=== PATIENT | male | born 1970 | race Caucasian/White ===

== ENCOUNTER 2021-09-07 23:09 | Inpatient (IN) | payer MEDICARE, MEDICAID, SELFPAY ==
[2021-09-08 04:29] VITALS: BP 142/88; PULSE 104; RESP 18; TEMP 36.8; O2SAT 98
[2021-09-08] MEDS: carisoprodoL 350 MG TABLET PO ×3 (04:54→18:34)
[2021-09-08 06:00] VITALS: BP 138/87; PULSE 100; RESP 18; TEMP 36.7; O2SAT 98
[2021-09-08] MEDS: Omeprazole 20 MG CAPSULE.DR PO (06:36)
--- NOTE | 2021-09-08 06:57 | PC.ADMIT ---
Pt is a 51 year old male transferred to [facility] form Nancie Alba via ambulance arrived at 23:50 he was being evaluated for SI and back pain. He has chronic pain. He has a history of suicide attempts. He uses a cane to ambulate and wears a orthopedic belt. Mood is depressed with episodes of crying during interview , he reports to feel safe on the unit . Covid test is neg and has no prior admission to [facility] but has a history of psychiatric inpatient at other hospitals
[2021-09-08] MEDS: OXcarbazepine 300 MG TABLET PO ×2 (09:34→13:44)
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
--- NOTE | 2021-09-08 12:57 | PM.EVENT ---
Event Note Date of Service: 09/08/21 Event Note: Pt didn't want to be evaluated at this time, I aske to be reached out to when he's ok
[2021-09-08] MEDS: diazePAM 5 MG TABLET 10 MG PO ×2 (13:43→18:35)
[2021-09-08] MEDS: buPROPion HCL 75 MG TABLET 150 MG PO (13:44)
[2021-09-08] MEDS: carisoprodoL 350 MG TABLET 175 MG PO (17:25)
[2021-09-08 18:36] VITALS: BP 130/67; PULSE 109; RESP 18; TEMP 36.2; O2SAT 96
[2021-09-08] MEDS: Zolpidem Tartrate 5 MG TABLET PO (18:36)
[2021-09-08] MEDS: Lurasidone HCl 40 MG TABLET PO (18:36)
[2021-09-08] MEDS: hydrOXYzine HCL 50 MG TABLET 100 MG PO (22:16)
[2021-09-09] MEDS: Dextroamphetamine/Amphetamine XR 10 MG CAP.ER.24H 60 MG PO (05:52)
[2021-09-09 06:00] VITALS: BP 131/75; PULSE 82; TEMP 36.5; O2SAT 98
[2021-09-09 08:24] LABS: Alanine Aminotransferase 29 U/L (0-40); Albumin Level 4.7 g/dL (3.5-5.0); Alkaline Phosphatase 120 U/L (39-117); Anion Gap 15 (12-20); Aspartate Amino Transferase 33 U/L (5-37); Bilirubin Total 1.2 mg/dL (0.0-1.0); Blood Urea Nitrogen 17 mg/dL (9-16); Calcium 9.7 mg/dL (8.4-10.2); Carbon Dioxide 25 mmol/L (22-29); Chloride 101 mmol/L (96-108); Cholesterol 270 mg/dL; Estimated Glomerular Filt Rate > 60; Glucose Fasting 110 mg/dL (60-99); HDL Cholesterol 44 mg/dL; LDL Cholesterol Calculated 200 mg/dl; Magnesium 5.9 mg/dL (1.6-2.6); Potassium 3.9 mmol/L (3.3-5.1); Sodium 137 mmol/L (135-145); Total Protein 8.6 g/dL (6.5-8.0); Triglycerides 132 mg/dL
[2021-09-09 08:41] LABS: Estimated Average Glucose 100 mg/dL; Free T4 (Free Thyroxine) 0.97 ng/dL (0.71-1.85); Hemoglobin A1c % 5.1 %; Thyroid Stimulating Hormone 3.28 uIU/mL (0.32-4.0)
[2021-09-09] MEDS: diazePAM 5 MG TABLET 10 MG PO ×2 (09:33→17:29)
[2021-09-09] MEDS: carisoprodoL 350 MG TABLET PO ×2 (09:34→22:21)
[2021-09-09] MEDS: buPROPion HCL 75 MG TABLET 150 MG PO (09:34)
[2021-09-09] MEDS: Omeprazole 20 MG CAPSULE.DR PO ×2 (09:34→16:24)
[2021-09-09] MEDS: Furosemide 40 MG TABLET PO (09:35)
--- NOTE | 2021-09-09 13:52 | P.PNPSI_ITS ---
Subjective Subjective Date of Service: 09/09/21 Reason For Visit: Major Depressive Disorder Subjective Notes: Conditional Voluntary Interim History: Met with patient. Reviewed record. Discussed with Nursing. Focused on medication regimen. Went through same in detail. And made adjustments where applicable regarding timing. Noted Tegretol is 600 mg twice per day as this is immediate release preparation versus extended release. Did confirm through [facility] Adderall dosing is 60 mg daily, Valium 10 mg 3 times per day, Ambien is 10 mg and Soma is total of 1050 mg. Reports Trileptal is very important does that decreases suicidal thoughts. Reports he is having lots of thoughts but no intention. Reports living alone and feeling isolated and more depressed recently. Sleep has been broken. Denies psychosis. Also of note magnesium level was 5.9 and hospitalist input appreciated. Medication Compliance: Yes Side effects from medications: No Attending Groups: No Review of Systems Magnesium level 5.9 and hospitalist input appreciated Review of Systems Review of Systems No significant changes Mental Status Exam Mental Status Exam Narrative: In bed. Pleasant. Some frustration regarding medication regimen. Hyperverbal and overinclusive at times. Endorses feeling depressed. Endorses SI but no plans or intent. No HI. No psychosis. Insight and judgment okay Diagnostics Vital Signs (24Hr): Vital Signs - 24 hr 09/08/21 18:36 09/09/21 06:00 Temperature 97.1 F 97.7 F Pulse Rate 109 H 82 Respiratory Rate 18 Blood Pressure 130/67 131/75 Pulse Oximetry 96 98 Oxygen Delivery Method Room Air Room Air Labs Results: 09/09/21 07:35 Labs: Laboratory Results - last 48 hr 09/09/21 09/09/21 07:35 07:35 Sodium 137 Potassium 3.9 Chloride 101 Carbon Dioxide 25 Anion Gap 15 BUN 17 H Creatinine 1.10 Estim Creat Clear Calc TNP Estimated GFR > 60 Fasting Glucose 110 H Estimat Average Glucose 100 Hemoglobin A1c % 5.1 Calcium 9.7 Magnesium 5.9 H* Total Bilirubin 1.2 H AST 33 ALT 29 Alkaline Phosphatase 120 H Total Protein 8.6 H Albumin 4.7 Triglycerides 132 Cholesterol 270 LDL Cholesterol, Calc 200 HDL Cholesterol 44 TSH 3.28 Free T4 0.97 Medications Medications Current Medications Acetaminophen (Acetaminophen 325 Mg Tablet) 650 mg PO Q6H PRN PRN Reason: Headache/Pain Mild Scale (1-3) Amphetamine/Dextroamphetamine (Dextroamphetamine/Amphetamine Xr 10 Mg Cap.Er.24h) 60 mg PO DAILY@0630 [facility] Last Admin: 09/09/21 05:52 Dose: 60 mg Bupropion HCl (Bupropion Hcl 75 Mg Tablet) 150 mg PO BID@0800,1300 [facility] Carisoprodol (Carisoprodol 350 Mg Tablet) 175 mg PO BID@1300,1700 [facility] Last Admin: 09/08/21 17:25 Dose: 175 mg Carisoprodol (Carisoprodol 350 Mg Tablet) 350 mg PO BID@0630,2100 [facility] Diazepam (Diazepam 5 Mg Tablet) 10 mg PO TID@0800,1300,2100 [facility] Efavirenz/Emtricitabine/Tenofovir (Efavirenz/Emtricitab/Tenof Df 600/200/300 Tablet) 1 tab PO BEDTIME [facility] Last Admin: 09/08/21 18:36 Dose: 1 tab Hydroxyzine HCl (Hydroxyzine Hcl 25 Mg Tablet) 25 mg PO Q6H PRN PRN Reason: Anxiety Hydroxyzine HCl (Hydroxyzine Hcl 50 Mg Tablet) 100 mg PO BEDTIME PRN PRN Reason: Insomnia Last Admin: 09/08/21 22:16 Dose: 100 mg Lurasidone HCl (Lurasidone Hcl 40 Mg Tablet) 40 mg PO DAILY@1600 [facility] Omeprazole (Omeprazole 20 Mg Capsule.Dr) 20 mg PO BID@0830,1600 [facility] Zolpidem Tartrate (Zolpidem Tartrate 5 Mg Tablet) 10 mg PO BEDTIME [facility] Allergies Allergies Allergy/AdvReac Type Severity Reaction Status Date / Time chlorpromazine Allergy Mild Rash Verified 09/08/21 05:07 meloxicam Allergy Mild Rash Verified 09/08/21 05:07 Assessment & Plan Assessment & Plan (1) Adjustment disorder with mixed disturbance of emotions and conduct: Status: Acute Code(s): F43.25 - Adjustment disorder with mixed disturbance of emotions and conduct (2) Borderline personality disorder: Status: Acute Code(s): F60.3 - Borderline personality disorder (3) Chronic post-traumatic stress disorder (PTSD): Status: Acute Code(s): F43.12 - Post-traumatic stress disorder, chronic Plan Patient is a 51-year-old male with history of anxiety, borderline personality disorder, PTSD, multiple medical comorbidities including HIV, chronic back and leg pain, hypothyroidism) who presents for dysregulated mood and suicide with plan but no intentions. Patient reports that up until this past month he his mood and anxiety have overall been fine and he has been without any SI. He says what has triggered him has been a series of failed home healthcare workers leavi ng him feeling abandoned, helpless and suicidal. He says he does not want to that he wants to live and has no current plans to harm himself. Patient does exhibit some symptoms of ASD making this a rule out PLAN: CV One-to-one due to say Sacro- iliac band Bupropion 150 mg b.i.d. Soma 350 mg in a.m., 175 mg at 13:00, 175 mg 17:00, 350 mg bedtime Diazepam 10 mg scheduled t.i.d. Latuda, increased to 40 mg daily Tegretol 600 mg b.i.d.; patient typically says he takes this 1200 mg at bedtime however this is immediate release in the hospital. Ambien 5 mg q.h.s. scheduled(he normally takes 10) Atarax 100 mg at bedtime p.r.n. for insomnia Labs from sending facility reviewed and CBC, LFTs, lytes, BUN/creatinine all grossly within normal limits; lipase elevated 148 09/09/2021: Appreciate hospitalist input regarding magnesium level. Did adjust Ambien to 10 mg given change in Tegretol regimen for/preparation poor sleep. Also adjusted Prilosec to 20 mg twice daily consistent with I spent minutes with the patient and/or on the patient floor today, greater than?50% of which was spent counseling/coordinating care. Reason for contiued inpatient stay Substantial Risk for: harm to self
--- NOTE | 2021-09-09 13:56 | HO.PSYCHPN ---
Subjective Subjective Reason For Visit: Major Depressive Disorder Diagnostics Vital Signs (24Hr): Vital Signs - 24 hr 09/08/21 18:36 09/09/21 06:00 Temperature 97.1 F 97.7 F Pulse Rate 109 H 82 Respiratory Rate 18 Blood Pressure 130/67 131/75 Pulse Oximetry 96 98 Oxygen Delivery Method Room Air Room Air Labs Results: 09/09/21 07:35 Labs: Laboratory Results - last 48 hr 09/09/21 09/09/21 07:35 07:35 Sodium 137 Potassium 3.9 Chloride 101 Carbon Dioxide 25 Anion Gap 15 BUN 17 H Creatinine 1.10 Estim Creat Clear Calc TNP Estimated GFR > 60 Fasting Glucose 110 H Estimat Average Glucose 100 Hemoglobin A1c % 5.1 Calcium 9.7 Magnesium 5.9 H* Total Bilirubin 1.2 H AST 33 ALT 29 Alkaline Phosphatase 120 H Total Protein 8.6 H Albumin 4.7 Triglycerides 132 Cholesterol 270 LDL Cholesterol, Calc 200 HDL Cholesterol 44 TSH 3.28 Free T4 0.97 Medications Medications Current Medications Acetaminophen (Acetaminophen 325 Mg Tablet) 650 mg PO Q6H PRN PRN Reason: Headache/Pain Mild Scale (1-3) Amphetamine/Dextroamphetamine (Dextroamphetamine/Amphetamine Xr 10 Mg Cap.Er.24h) 60 mg PO DAILY@0630 [facility] Last Admin: 09/09/21 05:52 Dose: 60 mg Bupropion HCl (Bupropion Hcl 75 Mg Tablet) 150 mg PO BID@0800,1300 [facility] Carisoprodol (Carisoprodol 350 Mg Tablet) 175 mg PO BID@1300,1700 [facility] Last Admin: 09/08/21 17:25 Dose: 175 mg Carisoprodol (Carisoprodol 350 Mg Tablet) 350 mg PO BID@0630,2100 [facility] Diazepam (Diazepam 5 Mg Tablet) 10 mg PO TID@0800,1300,2100 [facility] Efavirenz/Emtricitabine/Tenofovir (Efavirenz/Emtricitab/Tenof Df 600/200/300 Tablet) 1 tab PO BEDTIME [facility] Last Admin: 09/08/21 18:36 Dose: 1 tab Hydroxyzine HCl (Hydroxyzine Hcl 25 Mg Tablet) 25 mg PO Q6H PRN PRN Reason: Anxiety Hydroxyzine HCl (Hydroxyzine Hcl 50 Mg Tablet) 100 mg PO BEDTIME PRN PRN Reason: Insomnia Last Admin: 09/08/21 22:16 Dose: 100 mg Lurasidone HCl (Lurasidone Hcl 40 Mg Tablet) 40 mg PO DAILY@1600 [facility] Omeprazole (Omeprazole 20 Mg Capsule.Dr) 20 mg PO BID@0830,1600 [facility] Oxcarbazepine (Oxcarbazepine 300 Mg Tablet) 600 mg PO BID [facility] Oxcarbazepine (Oxcarbazepine 300 Mg Tablet) 600 mg PO ONCE ONE Stop: 09/09/21 13:52 Zolpidem Tartrate (Zolpidem Tartrate 5 Mg Tablet) 10 mg PO BEDTIME [facility] Allergies Allergies Allergy/AdvReac Type Severity Reaction Status Date / Time chlorpromazine Allergy Mild Rash Verified 09/08/21 05:07 meloxicam Allergy Mild Rash Verified 09/08/21 05:07 Assessment & Plan Assessment & Plan (1) Adjustment disorder with mixed disturbance of emotions and conduct: Status: Acute Code(s): F43.25 - Adjustment disorder with mixed disturbance of emotions and conduct (2) Borderline personality disorder: Status: Acute Code(s): F60.3 - Borderline personality disorder (3) Chronic post-traumatic stress disorder (PTSD): Status: Acute Code(s): F43.12 - Post-traumatic stress disorder, chronic Plan Patient is a 51-year-old male with history of anxiety, borderline personality disorder, PTSD, multiple medical comorbidities including HIV, chronic back and leg pain, hypothyroidism) who presents for dysregulated mood and suicide with plan but no intentions. Patient reports that up until this past month he his mood and anxiety have overall been fine and he has been without any SI. He says what has triggered him has been a series of failed home healthcare workers leaving him feeling abandoned, helpless and suicidal. He says he does not want to that he wants to live and has no current plans to harm himself. Patient does exhibit some symptoms of ASD making this a rule out PLAN: CV One-to-one due to say Sacro- iliac band Bupropion 150 mg b.i.d. Soma 350 mg in a.m., 175 mg at 13:00, 175 mg 17:00, 350 mg bedtime Diazepam 10 mg scheduled t.i.d. Latuda, increased to 40 mg daily Tegretol 600 mg b.i.d.; patient typically says he takes this 1200 mg at bedtime however this is immediate release in the hospital. Ambien 5 mg q.h.s. scheduled(he normally takes 10) Atarax 100 mg at bedtime p.r.n. for insomnia Labs from sending facility reviewed and CBC, LFTs, lytes, BUN/creatinine all grossly within normal limits; lipase elevated 148 09/09/2021: Appreciate hospitalist input regarding magnesium level. Did adjust Ambien to 10 mg given change in Tegretol regimen for/preparation poor sleep. Also adjusted Prilosec to 20 mg twice daily consistent with I spent minutes with the patient and/or on the patient floor today, greater than?50% of which was spent counseling/coordinating care.
[2021-09-09] MEDS: carisoprodoL 350 MG TABLET 175 MG PO ×2 (14:03→16:20)
[2021-09-09] MEDS: OXcarbazepine 300 MG TABLET 600 MG PO ×2 (14:14→22:19)
[2021-09-09 15:57] LABS: Magnesium 2.2 mg/dL (1.6-2.6)
[2021-09-09] MEDS: Lurasidone HCl 40 MG TABLET PO (17:39)
[2021-09-09 18:00] VITALS: BP 143/67; PULSE 69; RESP 20; TEMP 36.8; O2SAT 96
[2021-09-09] MEDS: Zolpidem Tartrate 5 MG TABLET 10 MG PO (22:20)
[2021-09-10] MEDS: Dextroamphetamine/Amphetamine XR 10 MG CAP.ER.24H 60 MG PO (06:13)
[2021-09-10] MEDS: carisoprodoL 350 MG TABLET PO ×2 (06:13→21:40)
[2021-09-10 06:46] VITALS: BP 133/65; PULSE 96; RESP 16; TEMP 36.6; O2SAT 97
[2021-09-10] MEDS: diazePAM 5 MG TABLET 10 MG PO ×3 (09:05→21:45)
[2021-09-10] MEDS: buPROPion HCL 75 MG TABLET 150 MG PO ×2 (09:05→12:40)
[2021-09-10] MEDS: OXcarbazepine 300 MG TABLET 600 MG PO ×2 (09:08→21:46)
[2021-09-10] MEDS: Omeprazole 20 MG CAPSULE.DR PO ×2 (09:13→17:46)
--- NOTE | 2021-09-10 12:22 | HO.PSYCHPN ---
Subjective Subjective Date of Service: 09/10/21 Reason For Visit: Major Depressive Disorder Interim History: felt positive today that medication regimen largely consistent with what he takes at home timing and dose mann. Sleep slightly better. Less depressed and suicidal. Physical concerns persist. These are chronic in nature. No psychosis. Medication Compliance: Yes Side effects from medications: No Attending Groups: No Review of Systems Acute medical concerns: No Review of Systems Review of Systems Unremarkable ie no new Mental Status Exam Mental Status Exam Narrative: engaged. Utilizing walking frame. Fair self-care. Less irritable and frustrated today. Less depressed. Less frequent SI. No psychosis. Insight judgment okay Diagnostics Vital Signs (24Hr): Vital Signs - 24 hr 09/09/21 18:00 09/10/21 06:46 Temperature 98.3 F 97.9 F Pulse Rate 69 96 Respiratory Rate 20 16 Blood Pressure 143/67 H 133/65 Pulse Oximetry 96 97 Oxygen Delivery Method Room Air Room Air Labs Results: 09/09/21 07:35 Labs: Laboratory Results - last 48 hr 09/09/21 09/09/21 09/09/21 07:35 07:35 15:27 Sodium 137 Potassium 3.9 Chloride 101 Carbon Dioxide 25 Anion Gap 15 BUN 17 H Creatinine 1.10 Estim Creat Clear Calc TNP Estimated GFR > 60 Fasting Glucose 110 H Estimat Average Glucose 100 Hemoglobin A1c % 5.1 Calcium 9.7 Magnesium 5.9 H* 2.2 Total Bilirubin 1.2 H AST 33 ALT 29 Alkaline Phosphatase 120 H Total Protein 8.6 H Albumin 4.7 Triglycerides 132 Cholesterol 270 LDL Cholesterol, Calc 200 HDL Cholesterol 44 TSH 3.28 Free T4 0.97 Medications Medications Current Medications Acetaminophen (Acetaminophen 325 Mg Tablet) 650 mg PO Q6H PRN PRN Reason: Headache/Pain Mild Scale (1-3) Amphetamine/Dextroamphetamine (Dextroamphetamine/Amphetamine Xr 10 Mg Cap.Er.24h) 60 mg PO DAILY@0630 [facility] Last Admin: 09/10/21 06:13 Dose: 60 mg Bupropion HCl (Bupropion Hcl 75 Mg Tablet) 150 mg PO BID@0800,1300 [facility] Last Admin: 09/10/21 09:05 Dose: 150 mg Carisoprodol (Carisoprodol 350 Mg Tablet) 175 mg PO BID@1300,1700 [facility] Last Admin: 09/09/21 16:20 Dose: 175 mg Carisoprodol (Carisoprodol 350 Mg Tablet) 350 mg PO BID@0630,2100 [facility] Last Admin: 09/10/21 06:13 Dose: 350 mg Diazepam (Diazepam 5 Mg Tablet) 10 mg PO TID@0800,1300,2100 [facility] Last Admin: 09/10/21 09:05 Dose: 10 mg Efavirenz/Emtricitabine/Tenofovir (Efavirenz/Emtricitab/Tenof Df 600/200/300 Tablet) 1 tab PO BEDTIME [facility] Last Admin: 09/09/21 22:20 Dose: 1 tab Hydroxyzine HCl (Hydroxyzine Hcl 25 Mg Tablet) 25 mg PO Q6H PRN PRN Reason: Anxiety Hydroxyzine HCl (Hydroxyzine Hcl 50 Mg Tablet) 100 mg PO BEDTIME PRN PRN Reason: Insomnia Last Admin: 09/08/21 22:16 Dose: 100 mg Lurasidone HCl (Lurasidone Hcl 40 Mg Tablet) 40 mg PO DAILY@1600 [facility] Last Admin: 09/09/21 17:39 Dose: 40 mg Omeprazole (Omeprazole 20 Mg Capsule.Dr) 20 mg PO BID@0830,1600 [facility] Last Admin: 09/10/21 09:13 Dose: 20 mg Oxcarbazepine (Oxcarbazepine 300 Mg Tablet) 600 mg PO BID [facility] Last Admin: 09/10/21 09:08 Dose: 600 mg Zolpidem Tartrate (Zolpidem Tartrate 5 Mg Tablet) 10 mg PO BEDTIME [facility] Last Admin: 09/09/21 22:20 Dose: 10 mg Allergies Allergies Allergy/AdvReac Type Severity Reaction Status Date / Time chlorpromazine Allergy Mild Rash Verified 09/08/21 05:07 meloxicam Allergy Mild Rash Verified 09/08/21 05:07 Assessment & Plan Assessment & Plan (1) Adjustment disorder with mixed disturbance of emotions and conduct: Status: Acute Code(s): F43.25 - Adjustment disorder with mixed disturbance of emotions and conduct (2) Borderline personality disorder: Status: Acute Code(s): F60.3 - Borderline personality disorder (3) Chronic post-traumatic stress disorder (PTSD): Status: Acute Code(s): F43.12 - Post-traumatic stress disorder, chronic Plan 09/09/2021: Appreciate hospitalist input regarding magnesium level.? Did adjust Ambien to 10 mg given change in Tegretol regimen for/preparation poor sleep.? Also adjusted Prilosec to 20 mg twice daily consistent with home dosing 09/10/21: Mg normal. No changes to current regimen I spent minutes with the patient and/or on the patient floor today, greater than?50% of which was spent counseling/coordinating care. Reason for contiued inpatient stay Substantial Risk for: inability to function
[2021-09-10] MEDS: carisoprodoL 350 MG TABLET 175 MG PO ×2 (12:40→16:18)
[2021-09-10] MEDS: Capsaicin 0.025% Cream 60 GM TUBE 1 APPL TOPICAL (14:43)
[2021-09-10] MEDS: Lurasidone HCl 40 MG TABLET PO (17:46)
[2021-09-10 18:00] VITALS: BP 120/82; PULSE 72; RESP 18; TEMP 36.1; O2SAT 98
[2021-09-11] MEDS: Zolpidem Tartrate 5 MG TABLET 10 MG PO ×2 (00:06→22:03)
[2021-09-11] MEDS: Dextroamphetamine/Amphetamine XR 10 MG CAP.ER.24H 60 MG PO (06:29)
[2021-09-11] MEDS: carisoprodoL 350 MG TABLET PO ×2 (06:30→22:04)
[2021-09-11] MEDS: diazePAM 5 MG TABLET 10 MG PO ×3 (08:34→20:52)
[2021-09-11] MEDS: Omeprazole 20 MG CAPSULE.DR PO ×2 (08:34→16:43)
[2021-09-11] MEDS: OXcarbazepine 300 MG TABLET 600 MG PO ×2 (08:34→22:04)
[2021-09-11] MEDS: buPROPion HCL 75 MG TABLET 150 MG PO ×2 (08:35→12:28)
[2021-09-11 10:35] VITALS: BP 142/83; PULSE 114; RESP 20; TEMP 36.3; O2SAT 97
[2021-09-11] MEDS: carisoprodoL 350 MG TABLET 175 MG PO ×2 (12:27→16:44)
--- NOTE | 2021-09-11 16:11 | P.PNPSI_ITS ---
Subjective Subjective Date of Service: 09/11/21 Reason For Visit: Major Depressive Disorder Interim History: Reports mood is in a better space. Denies SI. Mainly focused on physical wel l being such as his back support, utilization of a cane and walker. Talked about three-day notice process. Sleep at baseline. No psychosis. Gait utilize capsaicin cream as diclofenac cream not on formulary. Reports capsaicin cream gives a burning sensation and therefore will not utilize same. Medication Compliance: Yes Side effects from medications: No Attending Groups: Intermittent Review of Systems Acute medical concerns: No Review of Systems Review of Systems Unremarkable ie no new Mental Status Exam Mental Status Exam Narrative: engaged. Utilizing walking frame. Fair self-care. Affect brighter today. Much less depressed and irritable. No SI. No psychosis. Insight judgment okay Diagnostics Vital Signs (24Hr): Vital Signs - 24 hr 09/10/21 18:00 09/11/21 10:35 Temperature 97 F 97.4 F Pulse Rate 72 114 H Respiratory Rate 18 20 Blood Pressure 120/82 142/83 H Pulse Oximetry 98 97 Oxygen Delivery Method Room Air Room Air Labs Results: 09/09/21 07:35 Medications Medications Current Medications Acetaminophen (Acetaminophen 325 Mg Tablet) 650 mg PO Q6H PRN PRN Reason: Headache/Pain Mild Scale (1-3) Amphetamine/Dextroamphetamine (Dextroamphetamine/Amphetamine Xr 10 Mg Cap.Er.24h) 60 mg PO DAILY@0630 [facility] Last Admin: 09/11/21 06:29 Dose: 60 mg Bupropion HCl (Bupropion Hcl 75 Mg Tablet) 150 mg PO BID@0800,1300 [facility] Last Admin: 09/11/21 12:28 Dose: 150 mg Capsaicin (Capsaicin 0.025% Cream 60 Gm Tube) 1 appl TOPICAL TID [facility]; Protocol Last Admin: 09/11/21 13:29 Dose: Not Given Carisoprodol (Carisoprodol 350 Mg Tablet) 175 mg PO BID@1300,1700 [facility] Last Admin: 09/11/21 12:27 Dose: 175 mg Carisoprodol (Carisoprodol 350 Mg Tablet) 350 mg PO BID@0630,2100 [facility] Last Admin: 09/11/21 06:30 Dose: 350 mg Diazepam (Diazepam 5 Mg Tablet) 10 mg PO TID@0800,1300,2100 [facility] Last Admin: 09/11/21 12:28 Dose: 10 mg Efavirenz/Emtricitabine/Tenofovir (Efavirenz/Emtricitab/Tenof Df 600/200/300 Tablet) 1 tab PO BEDTIME [facility] Last Admin: 09/10/21 21:45 Dose: 1 tab Hydroxyzine HCl (Hydroxyzine Hcl 25 Mg Tablet) 25 mg PO Q6H PRN PRN Reason: Anxiety Hydroxyzine HCl (Hydroxyzine Hcl 50 Mg Tablet) 100 mg PO BEDTIME PRN PRN Reason: Insomnia Last Admin: 09/08/21 22:16 Dose: 100 mg Lurasidone HCl (Lurasidone Hcl 40 Mg Tablet) 40 mg PO DAILY@1730 [facility] Omeprazole (Omeprazole 20 Mg Capsule.Dr) 20 mg PO BID@0830,1600 [facility] Last Admin: 09/11/21 08:34 Dose: 20 mg Oxcarbazepine (Oxcarbazepine 300 Mg Tablet) 600 mg PO BID [facility] Last Admin: 09/11/21 08:34 Dose: 600 mg Zolpidem Tartrate (Zolpidem Tartrate 5 Mg Tablet) 10 mg PO BEDTIME [facility] Last Admin: 09/11/21 00:06 Dose: 10 mg Allergies Allergies Allergy/AdvReac Type Severity Reaction Status Date / Time chlorpromazine Allergy Mild Rash Verified 09/08/21 05:07 meloxicam Allergy Mild Rash Verified 09/08/21 05:07 Assessment & Plan Assessment & Plan (1) Adjustment disorder with mixed disturbance of emotions and conduct: Status: Acute Code(s): F43.25 - Adjustment disorder with mixed disturbance of emotions and conduct (2) Borderline personality disorder: Status: Acute Code(s): F60.3 - Borderline personality disorder (3) Chronic post-traumatic stress disorder (PTSD): Status: Acute Code(s): F43.12 - Post-traumatic stress disorder, chronic Plan 09/09/2021: Appreciate hospitalist input regarding magnesium level.? Did adjust Ambien to 10 mg given change in Tegretol regimen for/preparation poor sleep.? Also adjusted Prilosec to 20 mg twice daily consistent with home dosing 09/10/21: Mg normal. No changes to current regimen 09/11: No changes I spent minutes with the patient and/or on the patient floor today, greater than?50% of which was spent counseling/coordinating care. Reason for contiued inpatient stay Substantial Risk for: inability to function
[2021-09-11] MEDS: Lurasidone HCl 40 MG TABLET PO (16:43)
[2021-09-11 18:00] VITALS: BP 139/77; PULSE 88; RESP 14; TEMP 37; O2SAT 96
[2021-09-12] MEDS: hydrOXYzine HCL 50 MG TABLET 100 MG PO ×2 (00:27→21:56)
[2021-09-12 06:00] VITALS: BP 131/73; PULSE 92; RESP 18; TEMP 36.6; O2SAT 97
[2021-09-12 06:23] LABS: Folate > 20.0 ng/mL (> or = 4.0); Vitamin B12 626 pg/mL (200-900)
[2021-09-12] MEDS: Dextroamphetamine/Amphetamine XR 10 MG CAP.ER.24H 60 MG PO (06:43)
[2021-09-12] MEDS: carisoprodoL 350 MG TABLET PO ×2 (06:44→21:58)
[2021-09-12] MEDS: diazePAM 5 MG TABLET 10 MG PO ×3 (08:39→22:00)
[2021-09-12] MEDS: OXcarbazepine 300 MG TABLET 600 MG PO ×2 (08:39→21:56)
[2021-09-12] MEDS: Omeprazole 20 MG CAPSULE.DR PO ×2 (08:39→16:15)
[2021-09-12] MEDS: buPROPion HCL 75 MG TABLET 150 MG PO ×2 (08:39→12:39)
[2021-09-12] MEDS: carisoprodoL 350 MG TABLET 175 MG PO ×2 (12:42→17:54)
[2021-09-12 16:44] VITALS: BP 122/76; PULSE 96; TEMP 37.1
--- NOTE | 2021-09-12 17:44 | P.PNPSI_ITS ---
Subjective Subjective Date of Service: 09/12/21 Reason For Visit: Major Depressive Disorder Interim History: Patient reports that he is in a good mood and affect is noticeably brighter, smi ling and patient interacts warmly. He says that he is doing much better than on admission and denies any SI at all. He says he is ready to go back home and indeed did sign a 3 day notice. Patient feels back to his regular self. Errand Runner discussed his treatment and patient says he has most of all his medications already at home and otherwise will reach out to his outpatient provider. Errand Runner agrees to order some medications as a bridge script which patient is thankful for. Mental Status Exam Mental Status Exam Narrative: Pt is alert and oriented; behavior is cooperative, friendly and calm; patient is not in distress; dressed in casual attire with good hygiene, using walker; mood is described as good and affect congruent, brighter, warm; eye contact appropriate; Speech remains verbose but is normal rate, volume and prosody and not pressured; no psychomotor agitation/retardation present; thought process is goal directed, circumstantial and at times tangential but redirectable; Thought content is on tx, going home; otherwise pertinent to relevant topics and without any delusional content, paranoid ideations or grandiosity; denies any SI/HI. There is no evidence of perceptual disturbance. Patients insight and judgment are intact and adequate Diagnostics Vital Signs (24Hr): Vital Signs - 24 hr 09/11/21 18:00 09/12/21 06:00 09/12/21 16:44 Temperature 98.6 F 97.9 F 98.8 F Pulse Rate 88 92 96 Respiratory Rate 14 18 Blood Pressure 139/77 131/73 122/76 Pulse Oximetry 96 97 Oxygen Delivery Method Room Air Labs Results: 09/09/21 07:35 Labs: Laboratory Results - last 48 hr 09/09/21 07:35 Vitamin B12 626 Folate > 20.0 Medications Medications Current Medications Acetaminophen (Acetaminophen 325 Mg Tablet) 650 mg PO Q6H PRN PRN Reason: Headache/Pain Mild Scale (1-3) Amphetamine/Dextroamphetamine (Dextroamphetamine/Amphetamine Xr 10 Mg Cap.Er.24h) 60 mg PO DAILY@0630 [facility] Last Admin: 09/12/21 06:43 Dose: 60 mg Bupropion HCl (Bupropion Hcl 75 Mg Tablet) 150 mg PO BID@0800,1300 [facility] Last Admin: 09/12/21 12:39 Dose: 150 mg Capsaicin (Capsaicin 0.025% Cream 60 Gm Tube) 1 appl TOPICAL TID [facility]; Protocol Last Admin: 09/12/21 12:39 Dose: Not Given Carisoprodol (Carisoprodol 350 Mg Tablet) 175 mg PO BID@1300,1700 [facility] Last Admin: 09/12/21 12:42 Dose: 175 mg Carisoprodol (Carisoprodol 350 Mg Tablet) 350 mg PO BID@0630,2100 [facility] Last Admin: 09/12/21 06:44 Dose: 350 mg Diazepam (Diazepam 5 Mg Tablet) 10 mg PO TID@0800,1300,2100 [facility] Last Admin: 09/12/21 12:39 Dose: 10 mg Efavirenz/Emtricitabine/Tenofovir (Efavirenz/Emtricitab/Tenof Df 600/200/300 Tablet) 1 tab PO BEDTIME [facility] Last Admin: 09/11/21 22:04 Dose: 1 tab Hydroxyzine HCl (Hydroxyzine Hcl 25 Mg Tablet) 25 mg PO Q6H PRN PRN Reason: Anxiety Hydroxyzine HCl (Hydroxyzine Hcl 50 Mg Tablet) 100 mg PO BEDTIME [facility] Lurasidone HCl (Lurasidone Hcl 40 Mg Tablet) 40 mg PO DAILY@1730 [facility] Last Admin: 09/11/21 16:43 Dose: 40 mg Omeprazole (Omeprazole 20 Mg Capsule.Dr) 20 mg PO BID@0830,1600 [facility] Last Admin: 09/12/21 16:15 Dose: 20 mg Oxcarbazepine (Oxcarbazepine 300 Mg Tablet) 600 mg PO BID [facility] Last Admin: 09/12/21 08:39 Dose: 600 mg Zolpidem Tartrate (Zolpidem Tartrate 5 Mg Tablet) 10 mg PO BEDTIME [facility] Last Admin: 09/11/21 22:03 Dose: 10 mg Allergies Allergies Allergy/AdvReac Type Severity Reaction Status Date / Time chlorpromazine Allergy Mild Rash Verified 09/08/21 05:07 meloxicam Allergy Mild Rash Verified 09/08/21 05:07 Assessment & Plan Assessment & Plan (1) Adjustment disorder with mixed disturbance of emotions and conduct: Status: Acute Code(s): F43.25 - Adjustment disorder with mixed disturbance of emotions and conduct (2) Borderline personality disorder: Status: Acute Code(s): F60.3 - Borderline personality disorder (3) Chronic post-traumatic stress disorder (PTSD): Status: Acute Code(s): F43.12 - Post-traumatic stress disorder, chronic Plan 09/09/2021: Appreciate hospitalist input regarding magnesium level.? Did adjust Ambien to 10 mg given change in Tegretol regimen for/preparation poor sleep.? Also adjusted Prilosec to 20 mg twice daily consistent with home dosing 09/10/21: Mg normal. No changes to current regimen 09/11: No changes Patient has continued on home medication regimen with only change being an increase in Latuda which pt tolerates well. Patient has returned to baseline; his mood is good and affect noticeably brighter. He denies any SI at all which she also did on admission. He has remained stable throughout the weekend during this admission. Patient signed a 3 day notice feeling ready to go home. 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 Patient is future oriented and is not in imminent risk for harm to self or others. His request for discharge honored. I spent minutes with the patient and/or on the patient floor today, greater than?50% of which was spent counseling/coordinating care. Patient educated on: diagnosis, medication risk/benefits and therapeutic strategies Informed Consent: understands Reason for contiued inpatient stay Substantial Risk for: stable for discharge
[2021-09-12] MEDS: Lurasidone HCl 40 MG TABLET PO (17:54)
[2021-09-12] MEDS: Zolpidem Tartrate 5 MG TABLET 10 MG PO (21:56)
[2021-09-13 06:00] VITALS: BP 123/76; PULSE 70; TEMP 36.1; O2SAT 96
[2021-09-13] MEDS: Dextroamphetamine/Amphetamine XR 10 MG CAP.ER.24H 60 MG PO (06:34)
[2021-09-13] MEDS: carisoprodoL 350 MG TABLET PO (06:34)
[2021-09-13] MEDS: OXcarbazepine 300 MG TABLET 600 MG PO (09:04)
[2021-09-13] MEDS: buPROPion HCL 75 MG TABLET 150 MG PO ×2 (09:04→14:24)
[2021-09-13] MEDS: diazePAM 5 MG TABLET 10 MG PO ×2 (09:12→14:24)
--- NOTE | 2021-09-13 09:58 | P.DS_ITS ---
DS: Providers Provider Date of Service: 09/13/21 Date of admission: 09/07/21 23:09 Date of discharge: 09/13/21 Primary care physician: Unknown Physician Attending physician on admission: Jaiden Rivera Consults: 09/08/21 02:15 Consult to Hospitalist Routine Consulting Provider: Hospitalist Reason For Exam: new admit from [facility] Attending physician on discharge: Jaiden Rivera DS: Diagnosis Discharge Diagnosis (1) Adjustment disorder with mixed disturbance of emotions and conduct: Status: Acute (2) Borderline personality disorder: Status: Acute (3) Chronic post-traumatic stress disorder (PTSD): Status: Acute DS: Medications Discharge Medications Home Medications: Home Medications Medication Instructions Recorded Confirmed Soma 09/08/21 Trileptal 09/08/21 Wellbutrin SR 09/08/21 efavirenz 600 mg-emtricitabine 200 1 tab PO BEDTIME 09/08/21 09/08/21 mg-tenofovir disoprox 300 mg tablet omeprazole 09/08/21 (w/o vit A)-Fe fum-FA 09/08/21 Previous Rx's Medication Instructions Recorded dextroamphetamine-amphetamine ER 60 mg PO DAILY 7 days #14 caps 09/13/21 30 mg 24hr capsule,extend release diazepam 10 mg tablet 10 mg PO TID 7 days #21 tabs 09/13/21 hydroxyzine HCl 50 mg tablet 100 mg PO BEDTIME 7 days #14 tabs 09/13/21 lurasidone 40 mg tablet (Latuda) 40 mg PO DAILY@1730 30 days #30 09/13/21 tabs zolpidem 5 mg tablet 10 mg PO BEDTIME PRN insomnia 7 09/13/21 days #7 tabs Mental Status Exam Mental Status Exam Narrative: Pt is alert and oriented; behavior is cooperative, friendly and calm; patient is not in distress; dressed in casual attire with good hygiene, using walker; mood is described as good and affect congruent, brighter, warm; eye contact appropriate; Speech remains verbose but is normal rate, volume and prosody and not pressured; no psychomotor agitation/retardation present; thought process is goal directed, circumstantial and at times tangential but redirectable; Thought content is on tx, going home; otherwise pertinent to relevant topics and without any delusional content, paranoid ideations or grandiosity; denies any SI/HI. There is no evidence of perceptual disturbance. Patients insight and judgment are intact and adequate Data Data Completed and Pending Completed studies during hospitalization [Text1]: 09/09/21 09/09/21 09/09/21 07:35 07:35 07:35 Sodium 137 Potassium 3.9 Chloride 101 Carbon Dioxide 25 Anion Gap 15 BUN 17 H Creatinine 1.10 Estim Creat Clear Calc TNP Estimated GFR > 60 Fasting Glucose 110 H Estimat Average Glucose 100 Hemoglobin A1c % 5.1 Calcium 9.7 Magnesium 5.9 H* Total Bilirubin 1.2 H AST 33 ALT 29 Alkaline Phosphatase 120 H Total Protein 8.6 H Albumin 4.7 Triglycerides 132 Cholesterol 270 LDL Cholesterol, Calc 200 HDL Cholesterol 44 Vitamin B12 626 Folate > 20.0 TSH 3.28 Free T4 0.97 09/09/21 15:27 Sodium Potassium Chloride Carbon Dioxide Anion Gap BUN Creatinine Estim Creat Clear Calc Estimated GFR Fasting Glucose Estimat Average Glucose Hemoglobin A1c % Calcium Magnesium 2.2 Total Bilirubin AST ALT Alkaline Phosphatase Total Protein Albumin Triglycerides Cholesterol LDL Cholesterol, Calc HDL Cholesterol Vitamin B12 Folate TSH Free T4 DS: Summary Hospital Course Hospital Course: HPI: Patient is a 51-year-old male with history of anxiety, borderline personality disorder, PTSD, multiple medical comorbidities including HIV, chronic back and leg pain, hypothyroidism) who presents for dysregulated mood and suicide with plan but no intentions. Patient reports that up until this past month he his mood and anxiety have overall been fine and he has been without any SI.? He says what has triggered him has been a series of failed home healthcare workers.? He said the 1st 1 quit in April, another 1 quit in May and a 3rd 1 quit just a few weeks ago.? Another 1 recently quit who 1st per rated him on the phone.? Patient said that this series of home health care workers have been very difficult to get a hold of, would not show up, would not do the tasks they were assigned to do, and often Rony dismissive.? Patient says he has been feeling helpless, unable to attend to chores in the house due to his disabilities or technical support coordinator cook for himself.? Patient said I have.? Borderline personality disorder...? You can just abandoned me like that... He says this is why he became suicidal.? However he is adamant that he wants to get better and wants to live.? He says he has done DBT which has been helpful.? He again says he does not want to hurt himself.? However, his sense abandonment has been severely triggered by this experience and he feels he needs time to reach stabilize.? Patient is very clear on his medication doses and the times they were taken and becomes very anxious if these are not accurate; however he is amenable to discussions about them.? Once on the unit, patient soon settle down. All SI fully resolved. Patient was continued on home regimen except for Latuda being increased to 40 mg which he has been on in the past and says was helpful. Patient remains stable over the next few days without any SI, tolerating medications well and returned to baseline. Patient placed a 3 day notice feeling stable, safe and ready to go home; he was future oriented, his mood good and affect noticeably brighter.? He continued to deny any SI at all. 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 Patient is not in imminent risk for harm to self or others.? His request for discharge honored. Time spent discussing smoking cessation with patient: 3 to 10 minutes Status at Discharge Functional status at discharge: uses cane/walker Overall status at discharge: patient is back to baseline Time Spent with Patient Time attestation: Total time spent providing and/or coordinating discharge services: Time spent: Less than 30 minutes Discharge Plan Discharge Patient Disposition: Home, Self-Care Discharge Diagnosis: Adjustment disorder with mixed disturbance of emotions and conduct, in full remission Referrals: Psychiatry: Dr. Cooper [Other] - 1 Week (I left a voice message for Dr. Cooper and informed him of your discharge. Please contact Dr. Cooper at during his on-call hours, M-Th 9PM-10PM, to check-in and schedule a follow-up appointment) Lizet Christine MD [Physician] - 09/26/21 9:30 am Discharge Medications: New dextroamphetamine-amphetamine 30 mg capsule,extended release 24hr 60 mg PO DAILY 7 Days Qty: 14 0RF diazepam 10 mg tablet 10 mg PO TID 7 Days Qty: 21 0RF hydroxyzine HCl 50 mg Tablet 100 mg PO BEDTIME 7 Days Qty: 14 0RF Latuda 40 mg Tablet 40 mg PO DAILY@1730 30 Days Qty: 30 0RF zolpidem 5 mg Tablet 10 mg PO BEDTIME PRN (Reason: insomnia) 7 Days Qty: 7 0RF Continued Trileptal omeprazole Soma Wellbutrin SR (w/o vit A)-Fe fum-FA [id number]-izdlzmcoyqpj-[id number] 600-200-300 mg tablet 1 tab PO BEDTIME Discontinued Adderall XR 30 mg 2XD Latuda 60 mg PO DAILY Valium Ambien 10 mg Discharge Orders: Discharge Order (Routine); Ordered 09/13/21 Ordered By: Jaiden Rivera Diet: Regular diet Activity on Discharge: As tolerated Stand Alone Forms: Patient Portal Discharge page, Community Support Care Plan Goals: Maintain mood and safe behaviors Take medications as prescribed Practice coping skills Continue with outpatient providers and reach out to them as needed Health Concerns: Mood stability and behaviors Chronic Medical issues Plan of Treatment: Follow up with your PCP, psychiatric provider and other outpatient providers reg arding above concerns Take medications as prescribed Assessment: Risk assessment at time of discharge:? Patient was interviewed prior to discharge and found to be fully oriented and without any SI or HI. Patient has insight and demonstrates good judgment in terms of wanting to pursue treatment. Patient is not in imminent risk of harm to self or others and has a safety plan that includes presenting to the closest ER or calling 911 if feeling unsafe.? Patient has been observed closely by nursing and unit staff throughout admission; patient has not engaged in any behaviors that suggest dangerousness to self or others and has demonstrated appropriate behaviors and impulse control Discharge Date/Time: 09/13/21 14:30
[2021-09-13] MEDS: Omeprazole 20 MG CAPSULE.DR PO (11:43)
[2021-09-13] MEDS: carisoprodoL 350 MG TABLET 175 MG PO (14:25)
--- NOTE | 2021-09-13 15:27 | PC.NURSE ---
Patient was aware and ready for discharge. Paper work reviewed with patient. Follow up appointment and next dose medication explained to patient . Patient verbalized understanding . Patient was accompanied with belongings to the front of the building per hospital policy.
== END 2021-09-13 14:30 | disposition home or self-care (01) | DRG 882 ==
PROVIDERS: Registered Nurse; Student in an Organized Health Care Education/Training Program; Admitting Provider Psychiatry & Neurology Psychiatry; Visit Provider Psychiatry & Neurology Psychiatry
DX: F43.25 Adjustment disorder with mixed disturbance of emotions and conduct (principal); R45.851 Suicidal ideations; F43.12 Post-traumatic stress disorder, chronic; F60.3 Borderline personality disorder; Z21 Asymptomatic human immunodeficiency virus [HIV] infection status; E03.9 Hypothyroidism, unspecified; G89.29 Other chronic pain; Z88.5 Allergy status to narcotic agent; Z88.6 Allergy status to analgesic agent; Z79.899 Other long term (current) drug therapy
CPT/HCPCS: 36415; 80053; 80061; 82607; 82746; 83036; 83735; 84439; 84443

== ENCOUNTER → 2022-03-02 14:10 | Outpatient (BNVA) | payer MEDICARE, MEDICAID, SELFPAY | PROVIDERS: Visit Provider Student in an Organized Health Care Education/Training Program | DX: M17.0 Bilateral primary osteoarthritis of knee (principal) | CPT/HCPCS: 99202 ==

== ENCOUNTER → 2022-03-21 09:09 | Outpatient (BNVA) | payer MEDICARE, MEDICAID, SELFPAY | PROVIDERS: Visit Provider Student in an Organized Health Care Education/Training Program | DX: M17.0 Bilateral primary osteoarthritis of knee (principal) | CPT/HCPCS: 99212 ==

== ENCOUNTER → 2022-04-06 09:55 | Outpatient (BNVA) | payer MEDICARE, MEDICAID, SELFPAY | PROVIDERS: Visit Provider Student in an Organized Health Care Education/Training Program | DX: M17.0 Bilateral primary osteoarthritis of knee (principal) | CPT/HCPCS: 20610; 99212 ==

== ENCOUNTER 2022-10-12 15:32 | Outpatient (AMB) | payer MEDICARE, MEDICAID, SELFPAY ==
[2022-10-12 15:34] VITALS: BP 146/82; PULSE 105; TEMP 36.7; O2SAT 97; BMI 26.7
--- NOTE | 2022-10-12 15:34 | A.OFFVIS_ITS ---
Intake Vital Signs 10/12/22 15:34 Height 5 ft 6 in Weight 165 lb 5.547 oz BMI 26.7 BP 146/82 H Blood Pressure Location Rt brachial Position Sitting Pulse 105 H Pulse Source Pulse Oximeter Temp 98.1 F Temp Source Skin Pulse Oximetry (%) 97 Intake Visit Reasons: knee OA Intake Note: * Pt seen today for OA follow up. 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 Accompanied by: Self / Same As Patient Allergies chlorpromazine Allergy (Mild, Verified 10/12/22 15:38) Rash meloxicam Allergy (Mild, Verified 10/12/22 15:38) Rash Medication List - Last Reconciled 10/12/22 by Dilan Main MD bupropion HCl 150 mg PO BID carisoprodol 0 mg PO dextroamphetamine-amphetamine 30 mg ER 60 mg (2 x 30 mg) PO DAILY 7 days diazepam 10 mg PO TID 7 days diclofenac sodium 1% 2 grams topical QID vxolpglob-hvgbpjpxoqbf-kndqsmg 600-200-300 mg 1 tab PO BEDTIME hydroxyzine HCl 150 mg PO BEDTIME lurasidone (Latuda) 40 mg PO DAILY@1730 omeprazole 20 mg PO BID oxcarbazepine 300 mg PO QAM oxcarbazepine 1,200 mg PO BEDTIME [ (w/o vit A)-Fe fum-FA ] vit no.448-[id number]-roscu 28 mg iron- 800 mcg (Classic ) 1 tab PO DAILY [Soma ] [Trileptal ] [Wellbutrin SR ] zolpidem 10 mg PO BEDTIME PRN HPI HPI Comments History of Present Illness Details 52-year-old male with complex past medical history returns for bilateral knee gel injections. He states that the day in injections he received in both knees likely did help him as he was walking fairly were for a few months but he has not been walking well soon. States that recently his left knee was dislocated. He also started having pain and swelling of his left wrist that started over the last few weeks. He believes he had been overusing his left hand. Initial history: This is a 52-year-old male with past medical history of HIV, borderline personality disorder degenerative disc disease of lumbar spine s/p multiple injections presents for evaluation of bilateral knee OA. Patient has had bilateral knee osteoarthritis for many years. He had left knee arthroscopy for meniscal tear in the past. He received intra-articular steroid injections the past which only helped for 1-2 weeks. Since 2017 he started receiving Synvisc injections for both knees which provided relief for many months up to 1 year. His last injections was Synvisc-One and was administered in June 2021. Patient continues to complain of back pain and problems with balance. He also has been complaining of dementia.. [facility] Medical History (Updated 10/12/22 @ 16:58 by Dilan Main MD) Borderline personality disorder Chronic post-traumatic stress disorder (PTSD) HIV (human immunodeficiency virus infection) Surgical History S/P arthroscopic surgery of left knee Family History Mother COPD (chronic obstructive pulmonary disease) Father Arthritis Hypertension Alzheimer disease Social History Household Members: None Housing: Apartment Housing Other:: 3rd floor Do you presently have visiting nurse or other home services: Yes Patient Tobacco Use Status: Never used Tobacco e-Cigarette/Vaping Use: Never Used Substance Use Type: Marijuana service: No Current occupational status: disabled Sexual orientation: Did not discuss Review of Systems Musc Reports back pain, Reports arthralgias, Reports joint swelling, Reports limited range of motion and Reports stiffness Physical Exam Vital Signs: Last Vital Signs Temp 98.1 F 10/12/22 15:34 Pulse 105 H 10/12/22 15:34 BP 146/82 H 10/12/22 15:34 Pulse Ox 97 10/12/22 15:34 BMI result Body Mass Index 26.7 Const Other: Walks very slowly with an unsteady gait Nutritional Appearance: average body habitus Limitations: ambulation with walker HEENT Head: Yes normocephalic and Yes atraumatic Resp Effort & Inspection: normal respiratory effort and able to speak in complete sentences Extrem Other: Mild swelling and tenderness over the left ulnar styloid. Office Procedures Joint Injection/Drain Joint Injection/Drain Primary Site: right knee Secondary Site: left knee Prep: site was prepped using sterile technique and ethochloride spray was applied Approach Used: medial parapatellar Procedure: The patient tolerated the procedure well Coding Details: After risks and benefits were discussed with patient's.? Consent was obtained. The Right knee was prepped with ChloraPrep.? After using a topical ethyl chloride spray, The skin was anesthetized with 2 cc of 1% lidocaine using a 25 gauge needle.? Then using an 18 gauge needle right knee joint space was entered, no fluid could be aspirated, followed by injection of 60 mg Durolane Then the left knee was prepped with ChloraPrep.? After using a topical ethyl chloride spray, The skin was anesthetized with 2 cc of 1% lidocaine using a 25 gauge needle.? Then using a 21 gauge needle left knee joint space was entered, no fluid could be aspirated, followed by injection of 60 mg Durolane - Large joint Procedure code (CPT) selection complete Assessment & Plan Assessment & Plan (1) Bilateral primary osteoarthritis of knee: Code(s): M17.0 - Bilateral primary osteoarthritis of knee Plan: 52-year-old male with HIV, borderline personality disorder, extensive degenerative disc disease of the lumbar spine s/p multiple injections presents for bilateral knee osteoarthritis follow-up.. ?Patient has had bilateral knee osteoarthritis for many years.? He had left knee arthroscopy for meniscal tear in the past.? He received intra-articular steroid injections the past which only helped for 1-2 weeks.? Since 2018 he started receiving Synvisc injections for both knees which provided relief for many months up to 1 year.? Last visit we started the prior authorization for Synvisc-One but we were told that the specialty pharmacy does not carry, per patient Synvisc-One was denied. During was approved as a by [facility]. Patient mentions that the dural in injected provided some benefit and he is starting to have more bilateral knee pain. Patient wanted to proceed with bilateral knee during injections today. With patient's consent both knees were injected with drilling. Follow-up in 6 months. I asked patient to call 1 week ahead of his visit and let us know whether he would like to proceed with another set of Durolane injections so we can have it ready in clinic. (2) Swelling of left wrist: Code(s): M25.432 - Effusion, left wrist Plan: Mild swelling and tenderness over the left ulnar styloid likely precipitated by repetitive movements. Patient mentions that another doctor will do an ultrasound of his wrist for further evaluation. I asked patient to send me the report when the ultrasound is done I also ordered an x-ray of the left wrist to be done when possible. Advised patient to start applying Voltaren gel on the affected painful and swollen area Orders: Orders XR hand wrist LT Today M25.542 - Pain in joints of left hand AMB Joint Injection/Aspiration Today M17.0 - Bilateral primary osteoarthritis of knee Coding Level of Care Code Est Pt Level 3 (78752) Diagnoses Bilateral primary osteoarthritis of knee M17.0 Swelling of left wrist M25.432 CPT Codes Coding - 60762 Large joint: 92902 - Large joint ([id number])
== END 2022-10-12 16:00 | disposition home or self-care (01) ==
LOC: HO.RHE 15:32
PROVIDERS: Visit Provider Student in an Organized Health Care Education/Training Program
DX: M17.0 Bilateral primary osteoarthritis of knee (principal); M25.432 Effusion, left wrist
CPT/HCPCS: 20610; 99213

== ENCOUNTER → 2022-10-12 15:32 | Outpatient (BNVA) | payer MEDICARE, MEDICAID, SELFPAY | PROVIDERS: Visit Provider Student in an Organized Health Care Education/Training Program | DX: M17.0 Bilateral primary osteoarthritis of knee (principal); M25.432 Effusion, left wrist | CPT/HCPCS: 20610; 99212 ==